=== PATIENT | female | born 1970 | race Two or more races ===

== ENCOUNTER 2023-06-10 08:12 | Inpatient (IN) | payer OTHER ==
[~2023-06-10] VITALS: Ht 157.5 cm; Wt 128.0 kg
[2023-06-10] MEDS ORDERED: cloNIDine HCL 0.1 MG TAB ONE (08:34)
[2023-06-10] MEDS ORDERED: cloNIDine HCL 0.1 MG TAB PO ONE (08:45)
[2023-06-10 09:20] LABS: Basophils # (auto) 0 10 ^3/uL (0-0.2); Basophils % (auto) 0.4 % (0.0-2.0); Eosinophils # (auto) 0.1 10 ^3/uL (0-0.8); Eosinophils % (auto) 1.1 % (0.0-7.0); Hematocrit 44.8 % (36.0-46.0); Hemoglobin 14.9 g/dL (12.2-16.2); Lymphocytes # (auto) 1.9 10 ^3/uL (0.4-5.4); Lymphocytes % (auto) 17.3 % (10.0-50.0); Mean Corpuscular Hemoglobin 29.8 pg (28.0-32.0); Mean Corpuscular Hgb Conc. 33.2 g/dL (32.0-36.0); Mean Corpuscular Volume 89.6 fL (80.0-100.0); Monocytes # (auto) 0.6 10 ^3/uL (0-1.3); Monocytes % (auto) 5.5 % (0.0-12.0); Neutrophils # (auto) 8.1 10 ^3/uL (1.6-8.6); Neutrophils % (auto) 75.7 % (37.0-80.0); Nucleated Red Blood Cells % 0.1 %; Red Cell Distribution Width 13.5 % (11.8-14.3); White Blood Cell 10.8 10^3/uL (4.4-10.8)
[2023-06-10 09:33] LABS: INR 1.05 (0.9-1.15); Partial Thromboplastin Time 26.8 SEC (24.5-34.5)
[2023-06-10] MEDS ORDERED: SODIUM CHLORIDE 0.9% 1,000 ML IV ONE (09:45)
[2023-06-10] MEDS ORDERED: InsuLIN REG 1unit/0.01ml Soln (100units/ml) IV ONE (09:45)
[2023-06-10 09:52] LABS: Alanine Aminotransferase 15 U/L (7-40); Albumin 4.2 g/dL (3.2-4.8); Alkaline Phosphatase 84 U/L (46-116); Anion Gap 13 (5-15); Aspartate Aminotransferase 13 U/L (13-40); BUN/Creatinine Ratio 18.5 (10.0-20.0); Blood Urea Nitrogen 15 mg/dL (9-23); Calcium 9.5 mg/dL (8.5-10.1); Carbon Dioxide 20 mmol/L (20-30); Chloride 102 mmol/L (98-107); Glucose 337 mg/dL (74-106); Potassium 4.1 mmol/L (3.5-5.1); Sodium 135 mmol/L (136-145)
[2023-06-10 09:53] LABS: Bilirubin, Total 0.8 mg/dL (0.2-1.0); Total Protein 6.7 g/dL (5.7-8.2)
[2023-06-10] MEDS ORDERED: HYDROcodone-ACET 5/325MG TAB PO ONE (10:15)
[2023-06-10 10:31] VITALS: PULSE 77
[2023-06-10] MEDS ORDERED: DEXTROSE (50%) 50ML SYRG IV PRN (11:00)
[2023-06-10] MEDS ORDERED: ACETAMINOPHEN 325 MG TAB PO PRN (11:00)
[2023-06-10] MEDS ORDERED: hydrALAZINE HCL 20 MG/ML VL IV PRN (11:00)
[2023-06-10] MEDS ORDERED: NITROGLYCERIN 0.4 MG SL TAB SL PRN (11:00)
[2023-06-10] MEDS ORDERED: MECLIZINE HCL 25 MG TAB PO PRN (11:00)
[2023-06-10] MEDS ORDERED: MORPHINE SULFATE INJ 2 MG/ml SYRG IV PRN (11:00)
[2023-06-10] MEDS ORDERED: GABA-1250 PO (11:01)
[2023-06-10] MEDS ORDERED: SIMV20TA20 PO (11:01)
[2023-06-10] MEDS ORDERED: IBUP-1455 PO (11:01)
[2023-06-10] MEDS ORDERED: ERGO1CAP12 PO (11:01)
[2023-06-10] MEDS ORDERED: MORP1TAB12 PO (11:01)
[2023-06-10] MEDS ORDERED: LISI20TA56 PO (11:01)
[2023-06-10] MEDS ORDERED: TOPI50TA53 PO (11:01)
[2023-06-10] MEDS: SODIUM CHLORIDE 0.9% 1,000 ML IV SCH ×2 (11:14→22:03)
[2023-06-10] MEDS: ENOXAPARIN SOD 40 MG/0.4 ML SYRINGE SC SCH (11:16)
[2023-06-10] MEDS: InsuLIN REG 1unit/0.01ml Soln (100units/ml) SC SCH ×3 (11:30→21:46)
[2023-06-10] MEDS: ACCU-CHEK COMFORT CURVE STRIP VI SCH ×3 (11:51→21:46)
[2023-06-10 12:50] LABS: Triglycerides 302 mg/dL (< 150)
[2023-06-10 12:51] LABS: LDL Cholesterol 62 mg/dL (< 100)
[2023-06-10 12:52] LABS: Cholesterol 139 mg/dL (< 200); HDL Cholesterol 31 mg/dL (40-59)
[2023-06-10 18:31] VITALS: BP 122/74; PULSE 105; RESP 19; TEMP 97.9; O2SAT 96
[2023-06-10 18:47] VITALS: PULSE 103; RESP 19; O2SAT 96
[2023-06-10] MEDS ORDERED: HYDR-4798 PO (19:21)
[2023-06-10 20:00] VITALS: PULSE 83
[2023-06-10] MEDS: GABAPENTIN 300 MG CAP PO SCH (21:46)
[2023-06-10 22:00] VITALS: BP 130/76; PULSE 80; RESP 16; TEMP 98.9; O2SAT 100
[2023-06-10] MEDS: HYDROcodone-ACET 5/325MG TAB PO PRN (22:05)
[2023-06-11] VITALS (7 sets, daily range): BP systolic 115–149; BP diastolic 61–87; PULSE 75–93; RESP 16–21; TEMP 97.5–97.9; O2SAT 96–100
[2023-06-11 05:35] LABS: Basophils # (auto) 0.1 10 ^3/uL (0-0.2); Basophils % (auto) 0.9 % (0.0-2.0); Eosinophils # (auto) 0.3 10 ^3/uL (0-0.8); Eosinophils % (auto) 2.5 % (0.0-7.0); Hematocrit 41.1 % (36.0-46.0); Lymphocytes # (auto) 3.7 10 ^3/uL (0.4-5.4); Lymphocytes % (auto) 33.6 % (10.0-50.0); Mean Corpuscular Hemoglobin 30.4 pg (28.0-32.0); Mean Corpuscular Volume 89.3 fL (80.0-100.0); Monocytes # (auto) 0.9 10 ^3/uL (0-1.3); Monocytes % (auto) 8.3 % (0.0-12.0); Neutrophils % (auto) 54.7 % (37.0-80.0); Nucleated Red Blood Cells % 0.3 %; Red Cell Distribution Width 13.7 % (11.8-14.3); White Blood Cell 10.9 10^3/uL (4.4-10.8)
[2023-06-11 05:44] LABS: Albumin 3.9 g/dL (3.2-4.8); Alkaline Phosphatase 79 U/L (46-116); Anion Gap 9 (5-15); Aspartate Aminotransferase 13 U/L (13-40); BUN/Creatinine Ratio 15.1 (10.0-20.0); Blood Urea Nitrogen 11 mg/dL (9-23); Calcium 9.2 mg/dL (8.7-10.4); Carbon Dioxide 21 mmol/L (20-30); Chloride 106 mmol/L (98-107); Glucose 223 mg/dL (74-106); Sodium 136 mmol/L (136-145)
[2023-06-11 05:45] LABS: Total Protein 6.4 g/dL (5.7-8.2)
[2023-06-11 05:48] LABS: Alanine Aminotransferase < 9 U/L (7-40)
[2023-06-11] MEDS: GABAPENTIN 300 MG CAP PO SCH ×3 (06:19→21:36)
[2023-06-11] MEDS: HYDROcodone-ACET 5/325MG TAB PO PRN ×3 (06:19→21:50)
[2023-06-11] MEDS: ACCU-CHEK COMFORT CURVE STRIP VI SCH ×4 (06:27→21:45)
[2023-06-11] MEDS: InsuLIN REG 1unit/0.01ml Soln (100units/ml) SC SCH ×4 (06:29→21:50)
[2023-06-11] MEDS: ENOXAPARIN SOD 40 MG/0.4 ML SYRINGE SC SCH (10:27)
[2023-06-11 11:50] LABS: Folate (Folic Acid) 15.57 ng/mL (>5.38)
[2023-06-11] MEDS: SODIUM CHLORIDE 0.9% 1,000 ML IV SCH (12:48)
[2023-06-11] MEDS ORDERED: ASPirin 81 mg TAB PO ONE (13:00)
[2023-06-11] MEDS ORDERED: CYANOCOBALAMIN (B-12) 1000 MCG/1 ML VIAL IM ONE (13:15)
[2023-06-11] MEDS ORDERED: LISINOPRIL 20 MG TAB PO ONE (13:15)
[2023-06-11] MEDS ORDERED: GABAPENTIN 300 MG CAP PO SCH (14:00)
[2023-06-11] MEDS: MELATONIN 5 MG TAB PO SCH (21:36)
[2023-06-11] MEDS: TOPIRAMATE 25 MG TAB PO SCH (21:36)
[2023-06-11] MEDS: MECLIZINE HCL 25 MG TAB PO SCH (21:45)
[2023-06-12] VITALS (7 sets, daily range): BP systolic 115–145; BP diastolic 61–84; PULSE 74–97; RESP 18–19; TEMP 97.4–98.1; O2SAT 97–99
[2023-06-12] MEDS: GABAPENTIN 300 MG CAP PO SCH ×3 (06:27→21:10)
[2023-06-12] MEDS: HYDROcodone-ACET 5/325MG TAB PO PRN ×3 (06:27→19:47)
[2023-06-12] MEDS: MECLIZINE HCL 25 MG TAB PO SCH ×3 (06:27→21:10)
[2023-06-12 06:31] LABS: Basophils # (auto) 0 10 ^3/uL (0-0.2); Basophils % (auto) 0.5 % (0.0-2.0); Eosinophils # (auto) 0.2 10 ^3/uL (0-0.8); Eosinophils % (auto) 2.8 % (0.0-7.0); Hematocrit 39.8 % (36.0-46.0); Hemoglobin 13.6 g/dL (12.2-16.2); Lymphocytes # (auto) 2.6 10 ^3/uL (0.4-5.4); Lymphocytes % (auto) 31.1 % (10.0-50.0); Mean Corpuscular Hemoglobin 30.4 pg (28.0-32.0); Mean Corpuscular Hgb Conc. 34.1 g/dL (32.0-36.0); Mean Corpuscular Volume 89.2 fL (80.0-100.0); Monocytes # (auto) 0.7 10 ^3/uL (0-1.3); Monocytes % (auto) 7.9 % (0.0-12.0); Neutrophils # (auto) 4.8 10 ^3/uL (1.6-8.6); Neutrophils % (auto) 57.7 % (37.0-80.0); Nucleated Red Blood Cells % 0.1 %; Red Blood Cells 4.46 10^6/uL (4.0-5.20); Red Cell Distribution Width 13.3 % (11.8-14.3); White Blood Cell 8.4 10^3/uL (4.4-10.8)
[2023-06-12] MEDS: InsuLIN REG 1unit/0.01ml Soln (100units/ml) SC SCH ×4 (06:31→21:07)
[2023-06-12] MEDS: ACCU-CHEK COMFORT CURVE STRIP VI SCH ×4 (06:32→21:06)
[2023-06-12 06:41] LABS: Anion Gap 8 (5-15); Carbon Dioxide 25 mmol/L (20-30); Chloride 104 mmol/L (98-107); Potassium 4.4 mmol/L (3.5-5.1); Sodium 137 mmol/L (136-145)
[2023-06-12 06:43] LABS: Calcium 9.3 mg/dL (8.5-10.1)
[2023-06-12 06:47] LABS: BUN/Creatinine Ratio 15.2 (10.0-20.0); Blood Urea Nitrogen 14 mg/dL (9-23); Glucose 218 mg/dL (74-106)
[2023-06-12] MEDS ORDERED: INSULIN LANTUS (GLARGINE) 1 /0.01ml (100units/ml) SC ONE (08:45)
[2023-06-12] MEDS: LISINOPRIL 20 MG TAB PO SCH (09:54)
[2023-06-12] MEDS: ASPirin 81 mg TAB PO SCH (09:54)
[2023-06-12] MEDS: TOPIRAMATE 25 MG TAB PO SCH ×2 (09:55→21:10)
[2023-06-12] MEDS: CYANOCOBALAMIN 500 MCG TAB PO SCH (09:55)
[2023-06-12] MEDS: ENOXAPARIN SOD 40 MG/0.4 ML SYRINGE SC SCH (09:55)
[2023-06-12] MEDS: MELATONIN 5 MG TAB PO SCH (21:11)
[2023-06-13 05:00] VITALS: BP_SYST 119; BP_SYST 124; BP_SYST 126; BP_DIAS 68; BP_DIAS 73; BP_DIAS 74; PULSE 80; RESP 18; TEMP 98.1; O2SAT 95
[2023-06-13] MEDS: HYDROcodone-ACET 5/325MG TAB PO PRN ×2 (05:10→12:07)
[2023-06-13] MEDS: MECLIZINE HCL 25 MG TAB PO SCH ×2 (05:10→15:32)
[2023-06-13] MEDS: GABAPENTIN 300 MG CAP PO SCH ×2 (05:10→15:33)
[2023-06-13] MEDS: InsuLIN REG 1unit/0.01ml Soln (100units/ml) SC SCH ×2 (06:06→12:09)
[2023-06-13] MEDS: ACCU-CHEK COMFORT CURVE STRIP VI SCH ×2 (06:08→11:30)
[2023-06-13 06:31] LABS: Chloride 105 mmol/L (98-107); Sodium 136 mmol/L (136-145)
[2023-06-13 06:32] LABS: Anion Gap 9 (5-15); Calcium 9.3 mg/dL (8.7-10.4); Carbon Dioxide 22 mmol/L (20-30)
[2023-06-13 06:37] LABS: BUN/Creatinine Ratio 16.2 (10.0-20.0); Blood Urea Nitrogen 12 mg/dL (9-23); Glucose 184 mg/dL (74-106)
[2023-06-13 06:55] LABS: Basophils # (auto) 0.1 10 ^3/uL (0-0.2); Basophils % (auto) 0.6 % (0.0-2.0); Eosinophils # (auto) 0.2 10 ^3/uL (0-0.8); Eosinophils % (auto) 2.3 % (0.0-7.0); Hematocrit 41.5 % (36.0-46.0); Hemoglobin 13.9 g/dL (12.2-16.2); Lymphocytes # (auto) 2.8 10 ^3/uL (0.4-5.4); Lymphocytes % (auto) 31.7 % (10.0-50.0); Mean Corpuscular Hemoglobin 30.1 pg (28.0-32.0); Mean Corpuscular Hgb Conc. 33.4 g/dL (32.0-36.0); Mean Corpuscular Volume 90.2 fL (80.0-100.0); Monocytes # (auto) 0.7 10 ^3/uL (0-1.3); Neutrophils # (auto) 5.1 10 ^3/uL (1.6-8.6); Neutrophils % (auto) 57.4 % (37.0-80.0); Nucleated Red Blood Cells % 0.1 %; Red Cell Distribution Width 13.4 % (11.8-14.3); White Blood Cell 8.9 10^3/uL (4.4-10.8)
[2023-06-13] MEDS ORDERED: INSULIN LANTUS (GLARGINE) 1 /0.01ml (100units/ml) SC SCH (07:00)
[2023-06-13 08:06] LABS: Urine Bacteria NONE SEEN /hpf (None Seen); Urine Blood Negative /uL (Negative); Urine Clarity Clear (Clear); Urine Protein, UAD Negative (Negative); Urine Specific Gravity 1.009 (1.001-1.035); Urine Urobilinogen Normal (Negative); Urine WBC 2 /hpf (0 - 5); Urine pH 6.5 (5.0-8.0)
[2023-06-13 08:09] LABS: Urine Color STRAW (Yellow)
[2023-06-13 08:14] LABS: Amphetamine Screen, Urine Neg (NEGATIVE); Barbiturate Scree,Urine Neg (NEGATIVE); Benzodiazephine Screen, Urine Neg (NEGATIVE); Cannabinoid Screen, Urine Neg (NEGATIVE); Cocaine Screen, Urine Neg (NEGATIVE); Opiate Scree,Urine Neg (NEGATIVE); Phencyclidine Screen, Urine Neg (NEGATIVE)
[2023-06-13 08:20] VITALS: PULSE 81; O2SAT 98
[2023-06-13 09:00] VITALS: BP_SYST 119; BP_SYST 126; BP_SYST 127; BP_DIAS 57; BP_DIAS 67; BP_DIAS 76; PULSE 118; PULSE 84; PULSE 95; RESP 18; TEMP 98.7; O2SAT 94
[2023-06-13] MEDS ORDERED: MECL1TAB32 PO (10:24)
[2023-06-13] MEDS ORDERED: CYAN-17 PO (10:24)
[2023-06-13] MEDS: LISINOPRIL 20 MG TAB PO SCH (10:27)
[2023-06-13] MEDS: ASPirin 81 mg TAB PO SCH (10:27)
[2023-06-13] MEDS: TOPIRAMATE 25 MG TAB PO SCH (10:28)
[2023-06-13] MEDS: ENOXAPARIN SOD 40 MG/0.4 ML SYRINGE SC SCH (10:28)
[2023-06-13] MEDS: CYANOCOBALAMIN 500 MCG TAB PO SCH (10:28)
[2023-06-13 13:00] VITALS: BP_SYST 122; BP_SYST 123; BP_SYST 127; BP_DIAS 75; BP_DIAS 76; BP_DIAS 88; PULSE 115; PULSE 77; PULSE 84; RESP 20; TEMP 98.2; O2SAT 97
[2023-06-13] MEDS ORDERED: DOCUSATE SOD 100 MG CAP PO ONE (14:30)
[2023-06-13] MEDS ORDERED: LACTULOSE 20Gm/30ML SOLN PO ONE (14:30)
[2023-06-13 16:27] VITALS: BP 126/57; PULSE 84; RESP 18; TEMP 98.7; O2SAT 94
== END 2023-06-13 17:45 | disposition home or self-care (01) | DRG 149 ==
LOC: ER 08:12 → TELE 10:59 → TELE-CENTR 18:27
PROVIDERS: ADMIT Internal Medicine Geriatric Medicine; ATTEND Student in an Organized Health Care Education/Training Program
DX: H81.10 Benign paroxysmal vertigo, unspecified ear (principal); G45.9 Transient cerebral ischemic attack, unspecified; E11.65 Type 2 diabetes mellitus with hyperglycemia; E66.01 Morbid (severe) obesity due to excess calories; I10 Essential (primary) hypertension; E53.8 Deficiency of other specified B group vitamins; E11.40 Type 2 diabetes mellitus with diabetic neuropathy, unspecified; E78.1 Pure hyperglyceridemia; Z79.899 Other long term (current) drug therapy
CPT/HCPCS: 36415; 70450; 70551; 71045; 80048; 80053; 80061; 80307; 81001; 82010; 82607; 82746; 82962; 83036; 84443; 84484; 85025; 85610; 85730; 93005; 93306; 93886; 96361; 96372; 96374; G0378; J1815

== ENCOUNTER 2023-11-11 17:24 | Emergency (ER) | payer OTHER ==
[~2023-11-11] VITALS: Ht 157.5 cm; Wt 124.0 kg
[~2023-11-11 17:24] MED LIST: CYAN-17 PO; ERGO1CAP12 PO; GABA-1250 PO; HYDR-4798 PO; IBUP-1455 PO; LISI20TA56 PO; MECL-90 PO; SIMV20TA20 PO; TOPI50TA53 PO
[2023-11-11] MEDS ORDERED: LACT10SO3 PO (18:56)
[2023-11-11 20:13] VITALS: BP 195/94; PULSE 103; RESP 16; TEMP 98; O2SAT 98
[2023-11-11] MEDS: LACTULOSE 20Gm/30ML SOLN PO ONE (20:14)
== END 2023-11-11 20:18 | disposition home or self-care (01) ==
LOC: ER 17:24
DX: K59.09 Other constipation (principal); I10 Essential (primary) hypertension; E11.9 Type 2 diabetes mellitus without complications; Z98.890 Other specified postprocedural states; Z79.899 Other long term (current) drug therapy
CPT/HCPCS: 74018; 82962

== ENCOUNTER 2025-01-21 16:08 | Emergency (ER) | payer MEDICAID, OTHER ==
[~2025-01-21] VITALS: Ht 160 cm; Wt 120.0 kg
[~2025-01-21 16:08] MED LIST changes: +LACT10SO3 PO
--- NOTE | 2025-01-21 16:25 | ED.PDOC ---
History of Present Illness(SKN HPI Comments This is a 54 year old female presenting to the ED with chief complaint of wound check. Patient reports that she had noticed her left heel had felt sore on Saturday, however, when getting into bed, she noticed bleeding coming from her left heel. Patient relays that she currently has a wound to the bottom of her left heel that is concerning to her due to being diabetic. Patient denies any numbness, weakness, tingling, discharge, or active bleeding at this time. Patient ambulates with a cane. Vital signs were stable. Time Seen by MD: 16:22 Primary Care Provider: damir History of Present Illness: Nurses Notes, Medications, Allergies Allergies: Coded Allergies: NO KNOWN ALLERGIES (Unverified , 06/10/23) Home Meds Active Scripts Lactulose (Lactulose) 10 Gm/15 Ml Letty, 20 GM PO DAILY PRN, #400 ML Prov:MURALI ELDER 11/11/23 Cyanocobalamin (B12) 1,000 Mcg Cap, 1000 MCG PO DAILY, #30 CAP Prov:SONY GOLD MD 06/13/23 Meclizine Hcl (Meclizine Hcl) 25 Mg Tab, 25 MG PO Q8HR for 10 Days, #30 TAB Prov:SONY GOLD MD 06/13/23 Reported Medications Hydrocodone-Acetaminophen (Hydrocodone Bitartrate/AC 10-325 mg) 1 Tab Tab, 1 TAB PO, TAB 06/10/23 Simvastatin (Simvastatin) 20 Mg Tab, 1 TAB PO DAILY 06/10/23 Lisinopril (Lisinopril) 20 Mg Tab, 1 TAB PO 06/10/23 Ibuprofen Micronized (Ibuprofen) 800 Mg Tab, 1 TAB PO TID PRN 06/10/23 Ergocalciferol (Vitamin D) 50,000 Unit Cap, 1 CAP PO QWEEKLY 06/10/23 Topiramate (Topiramate) 50 Mg Tab, 1 TAB PO BID 06/10/23 Gabapentin (Gabapentin) 300 Mg Cap, 1 CAP PO TID 06/10/23 Information Source: Patient Mode of Arrival: Ambulatory Severity: Moderate Timing: Days Duration: Since onset Prehospital treatment: None Location: Foot Mechanism: Spontaneous Onset Object: None Condition of Object: None Retained Foreign Body: No Wound Type: Other Immunization Status of Animal: NA Tetanus: >5 Years History of: Diabetes Associated Signs and Symptoms: Redness Past Medical History PAST MEDICAL HISTORY: DM, HTN Surgical History: Appendectomy, [employer] History: Unknown Family History Family History: Unknown Social History Smoker: Non-Smoker Alcohol: Denies ETOH Use Drugs: Denies Drug Use Lives In: Home Constitutional: denies: chills, diaphoresis, fatigue, fever, malaise, sweats, weakness, others EENTM: denies: blurred vision, double vision, ear bleeding, ear discharge, ear drainage, ear pain, ear ringing, eye pain, eye redness, hearing loss, mouth pain, mouth swelling, nasal discharge, nose bleeding, nose congestion, nose pain, photophobia, tearing, throat pain, throat swelling, voice changes, others Respiratory: denies: cough, hemoptysis, orthopnea, SOB at rest, shortness of breath, SOB with excertion, stridor, wheezing, others Cardiovascular: denies: chest pain, dizzy spells, diaphoresis, Dyspnea on exertion, edema, irregular heart beat, left arm pain, lightheadedness, palpitations, PND, syncope, others Gastrointestinal: denies: abdomen distended, abdominal pain, blood streaked bowels, constipated, diarrhea, dysphagia, difficulty swallowing, hematemesis, melena, nausea, poor appetite, poor fluid intake, rectal bleeding, rectal pain, vomiting, others Genitourinary: denies: abnormal vagina bleeding, burning, dyspareunia, dysuria, flank pain, frequency, hematuria, incontinence, pain, , vagina discharge, urgency, others Neurological: denies: dizziness, fainting, headache, left sided numbness, left sided weakness, numbness, paresthesia, pre-existing deficit, right sided numbness, right sided weakness, seizure, speech problems, tingling, tremors, weakness, others Musculoskeletal: denies: back pain, gout, joint pain, joint swelling, muscle pain, muscle stiffness, neck pain, others Integumetry: reports: wounds (To bottom of left heel); denies: bruises, change in color, change in hair/nails, dryness, laceration, lesions, lumps, rash, others Allergic/Immunocompromised: denies: Difficulty Healing, Frequent Infections, Hives, Itching, others Hematologic/Lymphatic: denies: anemia, blood clots, easy bleeding, easy bruising, swollen glands, others Endocrine: denies: excessive hunger, excessive sweating, excessive thirst, excessive urination, flushing, intolerance to cold, intolerance to heat, unexplained weight gain, unexplained weight loss, others Psychiatric: denies: anxiety, bipolar disorder, depression, hopeless, panic disorder, schizophrenia, sleepless, suicidal, others All Other Systems: Reviewed and Negative Physical Exam General Appearance: Moderate Distress ([id number] distress due to left heel pain concerns.), Obese HEENT: Normal ENT Inspection, Pharynx Normal, TMs Normal Neck: Full Range of Motion, Non-Tender, Normal, Normal Inspection Respiratory: Chest Non-Tender, Lungs Clear, No Accessory Muscle Use, No Respiratory Distress, Normal Breath Sounds Cardiovascular: No Edema, No JVD, No Murmur, No Gallop, Normal Peripheral Pulses, Regular Rate/Rhythm Breast Exam: Deferred Gastrointestinal: No Organomegaly, Non Tender, No Pulsatile Mass, Normal Bowel Sounds, Soft Genitalia: Deferred Pelvic: Deferred Rectal: Deferred Extremities: No calf tenderness, Normal capillary refill, Other (Patient displays a complete heel wound that appears as though it is a blister that the top surface has been peeled off. Minimal localized erythema around the perimeter of the wound. No lymphangitis. No weepage noted.) Neurologic: Alert, No Motor Deficits, Normal Affect, Normal Mood, No Sensory Deficits Cerebellar Function: Normal Reflexes: Normal Skin: Dry, Normal Color, Warm Lymphatic: No Adenopathy Was a procedure done? Was a procedure done?: No Differential Diagnosis (INTG) Differential Diagnosis: Cellulitis, Other (Cellulitis, osteomyelitis, skin infections, blister) X-Ray, Labs, Meds, VS Vital Signs Date Time Temp Pulse Resp B/P (MAP) Pulse Ox O2 Delivery O2 Flow Rate FiO2 01/21/25 16:15 98.6 93 18 142/98 (113) 97 98.6 Lab Test 01/21/25 17:16 Range/Units White Blood Count 10.4 4.4-10.8 10^3/uL Red Blood Count 4.87 4.0-5.20 10^6/uL Hemoglobin 15.0 12.2-16.2 g/dL Hematocrit 43.7 36.0-46.0 % Mean Corpuscular Volume 89.7 80.0-100.0 fL Mean Corpuscular Hemoglobin 30.8 28.0-32.0 pg Mean Corpuscular Hemoglobin Concent 34.3 32.0-36.0 g/dL Red Cell Distribution Width 13.3 11.8-14.3 % Platelet Count 204 140-450 10^3/uL Mean Platelet Volume 8.1 6.9-10.8 fL Neutrophils (%) (Auto) 67.0 37.0-80.0 % Lymphocytes (%) (Auto) 24.9 10.0-50.0 % Monocytes (%) (Auto) 5.4 0.0-12.0 % Eosinophils (%) (Auto) 2.0 0.0-7.0 % Basophils (%) (Auto) 0.7 0.0-2.0 % Neutrophils # (Auto) 6.9 1.6-8.6 10 ^3/uL Lymphocytes # (Auto) 2.6 0.4-5.4 10 ^3/uL Monocytes # (Auto) 0.6 0-1.3 10 ^3/uL Eosinophils # (Auto) 0.2 0-0.8 10 ^3/uL Basophils # (Auto) 0.1 0-0.2 10 ^3/uL Nucleated Red Blood Cells 0.2 % Sodium Level 140 136-145 mmol/L Potassium Level 4.3 3.5-5.1 mmol/L Chloride Level 106 98-107 mmol/L Carbon Dioxide Level 21 20-31 mmol/L Anion Gap 13 5-15 Blood Urea Nitrogen 8 L 9-23 mg/dL Creatinine 0.85 0.550-1.02 mg/dL Glomerular Filtration Rate Calc 82 >90 mL/min BUN/Creatinine Ratio 9.4 L 10.0-20.0 Serum Glucose 154 H 74-106 mg/dL Lactic Acid Level 1.7 0.4-2.0 mmol/L Calcium Level 10.1 8.7-10.4 mg/dL X-Ray, Labs, Meds, VS Comment All studies performed the ED were evaluated by me personally. Laboratories studies were unremarkable for any systemic process. Patient appears to have some tissue breakdown on that heel. Patient's wound was dressed and patient will be advised to address the wound daily and follow up with primary care provider for wound evaluation and possible home health care. Time of 1ST Reevaluation: 18:53 Reevaluation 1ST: Improved Consultation: PCP Patient Education/Counseling: Diagnosis, Treatment Family Education/Counseling: No Family Present Departure 1 Departure Time of Disposition: 18:54 Impression: Primary Impression: Open wound of heel Disposition: HOME / SELF CARE / HOMELESS Condition: Stable Additional Instructions: Patient has been advised to do daily dressing changes and utilize oral antibiotics as directed. Patient should follow up with the primary care provider in the next 5-7 days for re-evaluation. e-Prescriptions Ibuprofen Micronized (Ibuprofen) 600 Mg Tab 600 MG PO Q6HP PRN, #20 TAB Prov: ELANA EMMANUEL PAC 01/21/25 Acetaminophen (Acetaminophen) 500 Mg Tab 500 MG PO Q4HP PRN, #30 TAB Prov: ELANA EMMANUEL PAC 01/21/25 Bacitracin Base (Bacitracin) 500 Unit/Gm Oin 500 UNIT TOP DAILY, #30 GM Prov: ELANA EMMANUEL 01/21/25 Cephalexin (KEFLEX CAPSULE) 250 Mg Cp 1 CAP PO QID for 5 Days, #20 CAP Prov: ELANA EMMANUEL 01/21/25 Discharged With: Self, Friend Critical Care Note Critical Care Time?: No Stability Stability form required: No Heart Score Heart Score: Heart Score Response (Comments) Value History N/A 0 EKG N/A 0 Age N/A 0 Risk Factors N/A 0 Troponin N/A 0 Total 0 I personally scribed for ELANA EMMANUEL PAC ([email or web address]) on 01/21/25 at 16:25. Electronically submitted by Jorje Garcia ([email or web address]). ELANA EMMANUEL PAC Jan 21, 2025 16:25
[2025-01-21] MEDS: NEOMYCIN-BACITRACIN-POLYM UNITDOSE PKG TOP OINT TOP ONE (16:30)
[2025-01-21 17:50] LABS: Basophils # (auto) 0.1 10 ^3/uL (0-0.2); Basophils % (auto) 0.7 % (0.0-2.0); Eosinophils # (auto) 0.2 10 ^3/uL (0-0.8); Hematocrit 43.7 % (36.0-46.0); Lymphocytes # (auto) 2.6 10 ^3/uL (0.4-5.4); Lymphocytes % (auto) 24.9 % (10.0-50.0); Mean Corpuscular Hemoglobin 30.8 pg (28.0-32.0); Mean Corpuscular Hgb Conc. 34.3 g/dL (32.0-36.0); Mean Corpuscular Volume 89.7 fL (80.0-100.0); Monocytes # (auto) 0.6 10 ^3/uL (0-1.3); Monocytes % (auto) 5.4 % (0.0-12.0); Neutrophils # (auto) 6.9 10 ^3/uL (1.6-8.6); Nucleated Red Blood Cells % 0.2 %; Platelet Count (auto) 204 10^3/uL (140-450); Red Blood Cells 4.87 10^6/uL (4.0-5.20); Red Cell Distribution Width 13.3 % (11.8-14.3); White Blood Cell 10.4 10^3/uL (4.4-10.8)
[2025-01-21 17:55] LABS: Calcium 10.1 mg/dL (8.7-10.4); Chloride 106 mmol/L (98-107); Potassium 4.3 mmol/L (3.5-5.1); Sodium 140 mmol/L (136-145)
[2025-01-21 17:56] LABS: Anion Gap 13 (5-15); Carbon Dioxide 21 mmol/L (20-31)
[2025-01-21 18:01] LABS: BUN/Creatinine Ratio 9.4 (10.0-20.0)
[2025-01-21 18:05] LABS: Blood Urea Nitrogen 8 mg/dL (9-23); Glucose 154 mg/dL (74-106)
[2025-01-21] MEDS ORDERED: ACET500T58 PO (18:58)
[2025-01-21] MEDS ORDERED: BACIOIN15 TOP (18:58)
[2025-01-21] MEDS ORDERED: IBUP1TAB5 PO (18:58)
[2025-01-21] MEDS ORDERED: CEPH250C PO (18:58)
[2025-01-21] MEDS: KETOROLAC TROMETH 60MG/2ML VIAL IM ONE (19:38)
[2025-01-21] MEDS: TETANUS-DIPTH-ACEL PERTUSSIS 0.5ML SYR Tdap IM ONE (19:41)
[2025-01-21 19:47] VITALS: BP 168/76; PULSE 70; RESP 18; TEMP 98.7; O2SAT 98
== END 2025-01-21 19:44 | disposition home or self-care (01) ==
LOC: ER 16:08
DX: S91.302A Unspecified open wound, left foot, initial encounter (principal); I10 Essential (primary) hypertension; E11.9 Type 2 diabetes mellitus without complications; Z90.49 Acquired absence of other specified parts of digestive tract; Z79.899 Other long term (current) drug therapy; Z98.890 Other specified postprocedural states; X58.XXXA Exposure to other specified factors, initial encounter; Y93.89 Activity, other specified; Y92.89 Other specified places as the place of occurrence of the external cause; Y99.8 Other external cause status
CPT/HCPCS: 36415; 80048; 82947; 83605; 85025; 90471; 90715; 96372; 99284; J1885; 82962